=== PATIENT | female | born 1945 | race Caucasian/White ===

== ENCOUNTER → 2016-07-27 | Outpatient (CLI) | payer BC, MEDICARE ==
[~2016-07-27] MED LIST: ALDACTONE DPS25 MG PO; ASA325 MG PO; COMPAZINE10 MG PO; CYMBALTA60 MG PO; DESYREL-DPS50 MG PO; FEOSOL-DPS325 MG PO; KLOR-CON M2020 ME1 PO; LASIX DPS40 MG PO; MAG-OX400 MG PO; NEURONTIN DPS100 MG PO; OMEGA-3 DPS1000 MG PO; OXY IR DPS5 MG PO; PRILOSEC DPS20 MG PO; TOVIAZ8 MG PO; ULTRAM DPS50 MG PO; VITAMIN A10000 UNI1 PO; VITAMIN B-12500 MCG PO; VITAMIN D31000 UNIT PO; VITAMIN E400 UNIT PO; WELLBUTRIN SR150 M1 PO
== END | disposition home or self-care (01) ==
LOC: PTH.S 07-24 12:39
DX: Z01.818 Encounter for other preprocedural examination (principal)

== ENCOUNTER 2016-08-07 06:08 | Inpatient (IN) | payer BC, MEDICARE ==
[~2016-08-07] VITALS: Ht 162.6 cm; Wt 93.3 kg
--- NOTE | ~2016-08-07 | HP ---
ADMIT: 08/07/2016 RM/LOC: [facility] MR#: [id number] [address] [place] [id number] HARINI MORA [address] [place] [address] Pre-OP History and Physical SEX: F AGE: 70 : 1945 DATE OF SERVICE: CHIEF COMPLAINT: Knee pain. HISTORY OF PRESENT ILLNESS: The patient is a 70-year-old female, longstanding history of right knee pain. She has had multitude of injections over the years, failed conservative care, now being admitted for right total knee arthroplasty. PAST MEDICAL HISTORY: Include hypertension, history of skin cancer. PAST SURGICAL HISTORY: Include a hip replacement and back surgery. MEDICATIONS: Include: 1. Lasix. 2. Trazodone. 3. Oxybutynin. 4. Potassium. 5. Iron. 6. Bupropion. 7. Gabapentin. 8. Cymbalta. ALLERGIES: NONE. SOCIAL HISTORY: Denies any significant tobacco or alcohol use. REVIEW OF SYSTEMS: Negative. PHYSICAL EXAMINATION: Elderly female. She has valgus alignment to the right ADMIT: 08/07/2016 RM/LOC: [facility] MR#: [id number] [address] [place] [id number] HARINI MORA [address] [place], [place] [address] Pre-OP History and Physical SEX: F AGE: 70 : 1945 lower extremity. Range of motion 5 to 110 degrees. No pain in the hip. No open sores or ulcers. Good pulses. Legs neurovascularly intact. DIAGNOSTIC DATA: X-rays AP, lateral, PA flexion view shows advanced right knee arthritis, valgus deformity, no joint space remaining. IMPRESSION: Advanced right knee valgus degenerative joint disease. PLAN: We talked about different options. She has failed conservative care. Plan on doing right Sigma total knee arthroplasty. She is aware of the risks, benefits, and options and agreed to proceed. She has been seen and cleared from a medical standpoint. William Cortés MD/ alysia JOB #: [id number] CC: William Cortés, Attending Physician Anil Rashid, Family Physician
--- NOTE | ~2016-08-07 | OR ---
ADMIT: 08/07/2016 RM/LOC: [facility] MR#: [id number] [id number] HARINI MORA [address] [place] [address] Operative/Delivery Room Report SEX: F AGE: 70 : 1945 SURGERY DATE: 08/07/2016 SURGEON: William Cortés MD BOTTOM FINISHER: VERO Owen PREOPERATIVE DIAGNOSIS: Right knee degenerative joint disease. POSTOPERATIVE DIAGNOSIS: Right knee degenerative joint disease. OPERATIONS: 1. Right total knee arthroplasty. 2. Intraarticular block. ANESTHESIA: Spinal. COMPLICATIONS: None. ESTIMATED BLOOD LOSS: 100 mL. TOTAL TOURNIQUET TIME: 45 minutes. COMPONENTS: 1. Size 4 narrow lugged J and J femoral component. 2. Size 3 modular tibial tray. 3. A 12.5 posterior stabilized insert. 4. A 38 mm oval patellar button. 5. Chucky SpeedSet cement. DESCRIPTION OF OPERATION: The patient was taken to the operating room and the correct extremity was identified. The patient received a spinal anesthetic. The right lower extremity was prepped and draped in a standard fashion. The leg was exsanguinated and tourniquet inflated. An anterior incision was made and dissection was carried through the subcutaneous tissue. A medial parapatellar arthrotomy was performed. An appropriate medial release was performed. The patella was subluxed laterally. The infrapatellar fat pad was partially excised for exposure. At that point, the distal femur was opened up with a drill. We cut 11 mm off the distal femur in 5 degrees of valgus using an intramedullary guide. A 5 degree external rotation block was used. We then cut the tibia perpendicular to its long axis taking it flush with the affected side with an extramedullary guide. We then sized the femur to a size 4 and pinned this in appropriate external rotation aligning it with the epicondylar axis. We then made anterior, posterior, and chamfer cuts with the 4-in-1 cutting block. We opened up the joint space and removed the remaining posterior osteophytes, meniscus, and PCL ligament. We made our box cut centralizing the femoral component. The tibia was subluxed anteriorly, fit for a size 3 modular tibial tray, punched and drilled in appropriate external rotation. We then removed the remaining tibial osteophytes. We then cut the patella perpendicular to its long axis taking it flush with the lateral facet ADMIT: 08/07/2016 RM/LOC: [address] [facility] MR#: [id number] [id number] HARINI MORA [address] [place] [address] Operative/Delivery Room Report SEX: F AGE: 70 : 1945 and fit it for a 38 mm oval patellar button restoring patellar height. We then extended the knee and opened the joint space to obtain posterior hemostasis and perform a posterior Exparel block. We then put in trial components with a 12.5 mm insert. At that point, we had full extension, full flexion, patella tracked centrally and no lateral release was required. The knee was also stable to varus and valgus stress testing. All trial components were removed and all the bony surfaces were Waterpik'd clean. We then cemented the tibia, femur, and patella in a standard fashion, put in the trial 12.5 Insert and held the knee in extension. While the cement hardened, we completed our intra- articular Exparel block. Once the cement was hard, we deflated the tourniquet, obtained hemostasis, irrigated out the wound thoroughly, removed the trial insert and put in the real insert. The knee was again found to be stable with full range of motion. No Hemovac drain was used. At that point, the extensor mechanism was closed with an interrupted 0-Vicryl suture with the knee in flexion. The subcutaneous tissue was closed 2-0 Vicryl and grace were placed in the skin. Mepilex Border dressing was then applied. The patient was taken to the recovery room in stable condition with no complications. William Cortés MD/ alysia JOB #: [id number] CC: William Cortés, Attending Physician Anil Rashid, Family Physician
[2016-08-10] MEDS ORDERED: NEURONTIN DPS100 MG PO (18:23)
[2016-08-10] MEDS ORDERED: ALDACTONE DPS25 MG PO (18:23)
[2016-08-10] MEDS ORDERED: LASIX DPS40 MG PO (18:23)
[2016-08-10] MEDS ORDERED: CYMBALTA60 MG PO (18:24)
[2016-08-10] MEDS ORDERED: WELLBUTRIN SR150 M1 PO (18:24)
[2016-08-10] MEDS ORDERED: KLOR-CON M2020 ME1 PO (18:24)
[2016-08-10] MEDS ORDERED: DESYREL-DPS50 MG PO (18:25)
[2016-08-10] MEDS ORDERED: TOVIAZ8 MG PO (18:25)
[2016-08-10] MEDS ORDERED: COMPAZINE10 MG PO (18:25)
[2016-08-10] MEDS ORDERED: PRILOSEC DPS20 MG PO (18:25)
[2016-08-10] MEDS ORDERED: FEOSOL-DPS325 MG PO (18:26)
[2016-08-10] MEDS ORDERED: OMEGA-3 DPS1000 MG PO (18:27)
[2016-08-10] MEDS ORDERED: VITAMIN B-12500 MCG PO (18:27)
[2016-08-10] MEDS ORDERED: VITAMIN D31000 UNIT PO (18:33)
[2016-08-10] MEDS ORDERED: VITAMIN E400 UNIT PO (18:34)
[2016-08-10] MEDS ORDERED: VITAMIN A10000 UNI1 PO ×2 (18:35→18:40)
[2016-08-10] MEDS ORDERED: ASA325 MG PO (18:40)
[2016-08-10] MEDS ORDERED: OXY IR DPS5 MG PO (18:40)
[2016-08-10] MEDS ORDERED: MAG-OX400 MG PO (18:40)
[2016-08-10] MEDS ORDERED: ULTRAM DPS50 MG PO (18:41)
--- NOTE | 2016-08-28 21:12 | DS ---
ADMIT: 08/07/2016 RM/LOC: [facility] MR#: [id number] [id number] [phone] MEGHAN MORA [address] [place] [address] General Discharge Summary SEX: F AGE: 70 : 1945 ADMISSION DATE: 08/07/2016 DISCHARGE DATE: 08/09/2016 REASON FOR ADMISSION: Elective right total knee arthroplasty after failing conservative management for osteoarthritis. PREOPERATIVE DIAGNOSIS: Right knee degenerative joint disease. POSTOPERATIVE DIAGNOSIS: Right knee degenerative joint disease. PROCEDURE PERFORMED: Right total knee arthroplasty. ANESTHETIC: Spinal. COMPLICATIONS: None. BLOOD LOSS: 100 mL. SURGEON: William Cortés MD. POWER CHISEL OPERATOR: VERO Owen ACTIVE MEDICAL PROBLEMS: Osteoarthritis and hypertension. HOSPITAL COURSE: Meghan was admitted on 08/07/2016 for elective right total knee arthroplasty, it was completed successfully by Dr. Cortés. There were no complications. She tolerated the procedure well. Postoperatively, she participated well with physical therapy. Aspirin protocol for DVT prophylaxis. Pain was well controlled with use oral analgesics as well as the intraoperative local cocktail. She did as anticipated experience mild acute surgical blood-loss anemia, hemoglobin dropped to 10, but remained hemodynamically stable, did not require transfusion. Postop day #2, she was stable and ready for discharge with plans for outpatient therapy. DISCHARGE MEDICATIONS: 1. Furosemide 40 mg b.i.d. 2. Gabapentin 100 mg 3 times daily. 3. Spironolactone 12.5 mg daily. 4. Bupropion SR 150 mg daily. 5. Duloxetine 60 mg daily. 6. Potassium chloride 40 mEq daily. 7. Omeprazole 40 mg daily. 8. Trazodone 50 mg at bedtime p.r.n. 9. Prochlorperazine 10 mg b.i.d. p.r.n. 10.Toviaz ER 80 mg daily. 11.Ferrous sulfate 324 mg Saturday, Saturday, and Saturday. 12.Fish oil 1200 mg daily. ADMIT: 08/07/2016 RM/LOC: [facility] MR#: [id number] [id number] MEGHAN MORA [address] [place] [address] General Discharge Summary SEX: F AGE: 70 : 1945 13.Vitamin B12, 500 mcg daily. 14.Vitamin D3, 1000 units daily. 15.Vitamin E 400 units daily. 16.Vitamin A 10,000 units daily. 17.Magnesium 400 mg daily. 18.Aspirin 325 mg daily. 19.OxyIR 5 mg 1 to 2 q.4 p.r.n. 20.Tramadol 50 mg 1 to 2 q.6 x3 days then p.r.n. DISCHARGE INSTRUCTIONS: Meghan will undergo outpatient therapy per total knee arthroplasty protocol. Follow in the orthopedic office in 2 weeks for wound check, 6 weeks with x-rays. Follow up with primary care as directed. Pool Mata PA-C / William Cortés MD / alysia JOB #: [id number] CC: William Cortés MD, Attending Physician Anil Rashid MD, Family Physician
== END 2016-08-09 18:25 | disposition home or self-care (01) | DRG 470 ==
LOC: 5MS 06:08 → WOR 06:08 → 5MS 10:49
PROVIDERS: ADMIT Orthopaedic Surgery
PROC: 0SRC0J9 Replacement of Right Knee Joint with Synthetic Substitute, Cemented, Open Approach (ICD-10-PCS; principal; 2016-08-07)
DX: M17.11 Unilateral primary osteoarthritis, right knee (principal); D62 Acute posthemorrhagic anemia; I10 Essential (primary) hypertension; F41.9 Anxiety disorder, unspecified; F32.9 Major depressive disorder, single episode, unspecified; N32.81 Overactive bladder; K21.9 Gastro-esophageal reflux disease without esophagitis; Z85.828 Personal history of other malignant neoplasm of skin; Z82.49 Family history of ischemic heart disease and other diseases of the circulatory system; Z98.84 Bariatric surgery status; Z96.643 Presence of artificial hip joint, bilateral